=== PATIENT | female | born 1930 ===

== ENCOUNTER 2017-06-29 09:52 | Inpatient (IN) | payer MEDICARE, BC ==
[2017-06-29 09:52] VITALS: BMI 29.6
[2017-06-29] MEDS ORDERED: Sodium Chloride 0.9% 1,000 ML IV ONE (10:14)
[2017-06-29] MEDS ORDERED: Albuterol-Ipratrop 3 mg / 0.5 (3 ml) UD IH STA (10:33)
[2017-06-29] MEDS ORDERED: Sodium Chloride 0.9% 1,000 ML ONE (10:42)
[2017-06-29 10:49] LABS: BASO % 0.8 % (0.0-2.0); EOS # 0.1 K/uL (0.0-0.7); EOS % 1.8 % (0.0-4.0); HEMOGLOBIN 13.1 g/dL (11.0-16.0); LYMPH # 1.6 K/uL (1.0-4.3); LYMPH % 31.8 % (20.0-40.0); MEAN CELL VOLUME 83.6 fL (81.0-99.0); MEAN CORPUSCULAR HEMOGLOBIN 28.3 pg (27.0-31.0); MEAN CORPUSCULAR HGB CONC 33.9 g/dL (33.0-37.0); MEAN PLATELET VOLUME 9.5 fL (7.2-11.7); MONO # 0.6 K/uL (0.0-0.8); MONO % 12.9 % (0.0-10.0); NEUT # 2.6 K/uL (1.8-7.0); NEUT % 52.7 % (50.0-75.0); NRBC % 0.1 % (0.0-2.0); RBC 4.63 Mil/uL (3.80-5.20); RED CELL DISTRIBUTION WIDTH 18.3 % (11.5-14.5); WHITE BLOOD COUNT 4.9 K/uL (4.8-10.8)
--- NOTE | 2017-06-29 10:53 | C.PDOC ---
History Of Present Illness 86 year old female, with PMHx of CVA with left residual hemiparesis, asthma, HTN , presents to ED accompanied by family member for evaluation of cold symptoms including nasal congestion, body aches, generalized weakness, dry cough and low grade fever for the past week. Pt reports being seen by PMD 3 days ago, was given Rx of Cefdinir, Medrolpack, which pt has been taking without improvement. Pt states she woke up feeling weak, and fell in the bathroom. Otherwise, denies LOC, head injury, syncope, focal deficits, dizziness, fever, chills, neck pain, CP, dyspnea, palpitation, wheezing, abd. pain, N/V/D, denies new weakness changes B/L UEs and LEs. Time Seen by Provider: 06/29/17 10:14 Chief Complaint (Nursing): Weakness/Neurological Deficit History Per: Patient History/Exam Limitations: no limitations Onset/Duration Of Symptoms: Days Current Symptoms Are (Timing): Still Present Recent travel outside of the [place] States: No Additional History Per: Patient Past Medical History Reviewed: Historical Data, Nursing Documentation, Vital Signs Vital Signs: Last Vital Signs Temp 98.3 F 06/29/17 18:03 Pulse 86 06/29/17 18:03 Resp 18 06/29/17 18:03 BP 151/78 H 06/29/17 18:03 Pulse Ox 96 06/29/17 18:03 - Medical History PMH: Asthma, Bronchitis, HTN, Hypothyroidism Denies: Chronic Kidney Disease Surgical History: Cholecystectomy - [facility] Procedures D & C NEC (01/06/14) HYSTEROSCOPY (01/06/14) Family History: States: Unknown Family Hx - Social History Hx Alcohol Use: No Hx Substance Use: No - Immunization History Hx Tetanus Toxoid Vaccination: No Hx Influenza Vaccination: No Hx Pneumococcal Vaccination: No Review Of Systems Except As Marked, All Systems Reviewed And Found Negative. Constitutional: Positive for: Fever, Weakness, Other (body aches) ENT: Positive for: Nose Congestion Cardiovascular: Negative for: Chest Pain, Palpitations Respiratory: Positive for: Cough. Negative for: Shortness of Breath Gastrointestinal: Negative for: Nausea, Vomiting, Abdominal Pain, Diarrhea Musculoskeletal: Negative for: Neck Pain, Back Pain Neurological: Negative for: Weakness, Numbness, Headache, Dizziness Physical Exam - Physical Exam Appears: Non-toxic, No Acute Distress Skin: Normal Color, Warm, Dry Head: Normacephalic Eye(s): bilateral: PERRL Nose: No Flaring Oral Mucosa: Moist Throat: Normal, No Erythema, No Exudate Neck: Supple Cardiovascular: Rhythm Regular, No Murmur Respiratory: No Accessory Muscle Use, No Rales, No Rhonchi, Wheezing (diffuse bilateral ) Gastrointestinal/Abdominal: Soft, No Tenderness Extremity: Normal ROM, No Pedal Edema, No Deformity Neurological/Psych: Oriented x3, Normal Speech ED Course And Treatment - Laboratory Results Result Diagrams: 06/29/17 10:41 06/29/17 10:41 Lab Interpretation: No Acute Changes ECG: Interpreted By Me, Viewed By Me ECG Rhythm: Sinus Rhythm Interpretation Of ECG: SR@74/min, NAD, T wave inversion in III, no acute ST-T changes. O2 Sat by Pulse Oximetry: 100 (RA) Pulse Ox Interpretation: Normal - Radiology CXR: Interpreted by Me, Viewed By Me CXR Interpretation: Yes: No Acute Disease - Other Rad CXR X-Ray: Interpreted by Me, Viewed By Me, Read By Radiologist Interpretation: FINDINGS: LUNGS: Clear. PLEURA: Nonspecific elevation of the right hemidiaphragm. CARDIOVASCULAR: Normal. OSSEOUS STRUCTURES: Left glenohumeral prosthesis. Right humeral head anchor screws. VISUALIZED UPPER ABDOMEN: Normal. OTHER FINDINGS: Right chest wall surgical clips likely related to prior breast surgery. IMPRESSION: No active disease. Progress Note: Blood work, UA, influenza AB, CXR, EKG ordered and reviewed. Pt was given Solu-Medrol, and IV fluids. Pt was OBS in ED for 3 hours. Pt reports, "feels same". On re-eval, Lungs: diffuse wheezing B/L, BS equal B/L. Blood work review and appears without acute abnormalities. Case discussed with ED attending and admission recommend. results review and discussed with pt and family, agrees with plan. Case discused with DR. Coles and admission arranged with Dx: Asthma exacerbation, dyspnea r/o PNA. Disposition - Disposition Disposition: HOSPITALIZED Disposition Time: 12:37 Condition: STABLE - Clinical Impression Clinical Impression: Dyspnea, Asthma exacerbation, Pneumonia - PA / ADVERTISING DESIGNER / Resident Statement MD/DO has reviewed & agrees with the documentation as recorded. - Scribe Statement The provider has reviewed the documentation as recorded by the Armenkeila Faith All medical record entries made by the Heriberto were at my direction and personally dictated by me. I have reviewed the chart and agree that the record accurately reflects my personal performance of the history, physical exam, medical decision making, and the department course for this patient. I have also personally directed, reviewed, and agree with the discharge instructions and disposition.
[2017-06-29 11:03] LABS: ALB/GLOB RATIO 1.1 (1.0-2.1); ALBUMIN 3.7 g/dL (3.5-5.0); ALT/SGPT 25 U/L (9-52); AST/SGOT 30 U/L (14-36); BLOOD UREA NITROGEN 23 mg/dL (7-17); CALCIUM 8.4 mg/dl (8.6-10.4); GFR AFRICAN-AMERICAN > 60; GFR NON-AFRICAN AMERICAN 52; PROTHROMBIN TIME 11.3 SECONDS (9.7-12.2)
[2017-06-29 11:14] LABS: B-TYPE NATRIURETIC PEPTIDE 479 pg/mL (0-900)
--- NOTE | 2017-06-29 11:27 | RAD ---
PROCEDURE: CHEST RADIOGRAPH, 1 VIEW HISTORY: SOB COMPARISON: 04/06/2017 FINDINGS: LUNGS: Clear. PLEURA: Nonspecific elevation of the right hemidiaphragm. CARDIOVASCULAR: Normal. OSSEOUS STRUCTURES: Left glenohumeral prosthesis. Right humeral head anchor screws. VISUALIZED UPPER ABDOMEN: Normal. OTHER FINDINGS: Right chest wall surgical clips likely related to prior breast surgery. IMPRESSION: No active disease.
[2017-06-29] MEDS ORDERED: Piperacillin/Tazobact 3.375 gm 100 ML IVPB STA (11:34)
[2017-06-29 12:07] LABS: SQUAMOUS EPITHIAL 1 /hpf (0-5); URINE BACTERIA RARE (<OCC); URINE BILIRUBIN NEGATIVE (NEGATIVE); URINE BLOOD NEGATIVE (NEGATIVE); URINE CLARITY Clear (Clear); URINE COLOR Yellow (YELLOW); URINE GLUCOSE (UA) NORMAL (Normal); URINE HYALINE CAST 0-2 /lpf (0-2); URINE LEUKOCYTE ESTERASE TRACE Leu/uL (Negative); URINE NITRATE NEGATIVE (NEGATIVE); URINE PROTEIN 1+ mg/dL (NEGATIVE); URINE UROBILINOGEN NORMAL mg/dL (0.2-1.0)
[2017-06-29] MEDS ORDERED: Albuterol-Ipratrop 3 mg / 0.5 (3 ml) UD ONE (14:33)
[2017-06-29] MEDS ORDERED: Piperacill/Tazo 3.375gm in Dex 3.375 GM/50 ML BAG IVPB ONE (15:00)
[2017-06-29] MEDS ORDERED: Vancomycin 1 gm/NS 200 ml 1 GM/200 ML BAG IVPB ONE (17:00)
--- NOTE | 2017-06-29 20:00 | CP.PCM.CON ---
History of Present Illness - History of Present Illness History of Present Illness: Infectious Disease Consult; HPI; 86-year-old female with past medical history of CVA with left residual hemiparesis, bronchial asthma, HTN, hypothyroidism,metastatic CA of the breast with recurrence and presently on chemotherapy was admitted by the emergency room with nasal congestion, generalized body aches, dry cough and low-grade fevers for the past week. Patient states she saw her private M.D. 3 days ago and was given therapy with cefdinir, Medrol Adria which patient has been taking without improvement. Patient also reported reports feeling weak and fell in the bathroom this a.m. when she woke up. Patient denies any loss of consciousness or head injury, syncope, any focal deficits, dizziness. She denies any headache or neck pain. She complains of a dry cough but denies any hemoptysis or hematemesis. Patient also denies any abdominal pain, nausea or vomiting or diarrhea. CHEST X-RAY ON ADMISSION IS UNREMARKABLE. INFECTIOUS DISEASE CONSULTATION REQUESTED BY DR BURCIAGA PMD. PATIENT DENIES ANY RECENT TRAVEL OR ANY SICK CONTACTS. PMH: Asthma, Bronchitis, HTN, Hypothyroidism Denies: Chronic Kidney Disease Surgical History: Cholecystectomy - [facility] Procedures D & C NEC (01/06/14) HYSTEROSCOPY (01/06/14) Family History: States: Unknown Family Hx - Social History Hx Alcohol Use: No Hx Substance Use: No - Immunization History Hx Tetanus Toxoid Vaccination: No Hx Influenza Vaccination: No Hx Pneumococcal Vaccination: Nowith underwent Review of Systems - EENT Nose/Mouth/Throat: Nasal Congestion, Dry Mouth. absent: Hoarsness, Mouth Lesions, Sore Throat - Breasts Breasts: As Per HPI. absent: Mass, Nipple Discharge, Nipple Inversion - Cardiovascular Cardiovascular: Dyspnea. absent: Chest Pain - Respiratory Respiratory: Cough, Chest Congestion. absent: Hemoptysis, Change in Mucous Color - Gastrointestinal Gastrointestinal: absent: Abdominal Pain, Diarrhea, Hematemesis, Nausea, Vomiting - Genitourinary Genitourinary: absent: Dysuria, Freq UTI - Reproductive: Female Reproductive:Female: S/P Hysterectomy, Menopausal - Musculoskeletal Musculoskeletal: Limited Range of Motion (.), Myalgias, Tingling (LEFT HAND.) - Integumentary Integumentary: absent: Rash - Neurological Neurological: absent: Focal Weakness, Headaches, Syncope, Weakness - Hematologic/Lymphatic Hematologic: As Per HPI. absent: Lymphadenopathy Past Patient History - Infectious Disease Hx of Infectious Diseases: None - Past Medical History & Family History Past Medical History?: Yes - Past Social History Smoking Status: Never Smoked - CARDIAC Hx Hypertension: Yes - PULMONARY Hx Asthma: Yes Hx Bronchitis: Yes - NEUROLOGICAL HX Cerebrovascular Accident: Yes - HEENT Hx HEENT Problems: Yes Hx Cataracts: Yes - RENAL Hx Chronic Kidney Disease: No - ENDOCRINE/METABOLIC Hx Hypothyroidism: Yes - MUSCULOSKELETAL/RHEUMATOLOGICAL Hx Degenerative Joint Disease: Yes (bilat. shoulder arthroscopy) Hx Osteoarthritis: Yes (sciatica) - GASTROINTESTINAL Hx Gastrointestinal Disorders: No - GENITOURINARY/GYNECOLOGICAL Hx Genitourinary Disorders: Yes Hx Postmenopausal Bleeding: Yes - PSYCHIATRIC Hx Substance Use: No - SURGICAL HISTORY Hx Cholecystectomy: Yes - ANESTHESIA Hx Anesthesia: Yes Hx Anesthesia Reactions: No Hx Malignant Hyperthermia: No Meds Allergies/Adverse Reactions: Allergies Allergy/AdvReac Type Severity Reaction Status Date / Time No Known Allergies Allergy Verified 06/29/17 10:07 - Medications Medications: Current Medications Acetaminophen (Tylenol 325mg Tab) 650 mg PO Q4H PRN PRN Reason: pain fever Albuterol/Ipratropium (Duoneb 3 Mg/0.5 Mg (3 Ml) Ud) 3 ml INH RQ6 [facility] Gabapentin (Neurontin) 100 mg PO BID [facility] Home Med (Palbociclib [Ibrance]) 75 mg PO QWK [facility] Home Med (Simvastatin [Simvastatin]) 1 tab PO HS [facility] Home [facility] (Valsartan [Diovan]) 1 tab PO DAILY [facility] Vancomycin/Sodium Chloride (Vancomycin 1 Gm/Ns 200 Ml) 1 gm in 200 mls @ 166.7 mls/hr IVPB Q24H [facility] Stop: 07/05/17 16:31 Levothyroxine Sodium (Synthroid) 1,000 mcg PO DAILY [facility] Methylprednisolone (Solu-Medrol) 40 mg IVP Q12 [facility] Ondansetron HCl (Zofran Inj) 4 mg IVP Q6H PRN PRN Reason: Nausea/Vomiting Physical Exam - Constitutional Appears: No Acute Distress, Chronically Ill - Head Exam Head Exam: NORMAL INSPECTION - Eye Exam Eye Exam: EOMI, PERRL - ENT Exam ENT Exam: Mucous Membranes Dry, Normal Oropharynx - Neck Exam Neck exam: Positive for: Normal Inspection. Negative for: Thyromegaly - Respiratory Exam Respiratory Exam: Decreased Breath Sounds - Cardiovascular Exam Cardiovascular Exam: REGULAR RHYTHM, +S1, +S2 - GI/Abdominal Exam GI & Abdominal Exam: Normal Bowel Sounds, Soft. absent: Organomegaly - Extremities Exam Extremities exam: Positive for: pedal pulses present. Negative for: calf tenderness, pedal edema - Neurological Exam Neurological exam: Alert, CN II-XII Intact, Reflexes Normal (LEFT-SIDED WEAKNESS LEFT UPPER ARM MORE THAN LEFT LOWER EXTREMITY.) - Psychiatric Exam Psychiatric exam: Normal Mood - Skin Skin Exam: Normal Color, Warm Results - Vital Signs Recent Vital Signs: Last Vital Signs Temp 98.3 F 06/29/17 18:03 Pulse 86 06/29/17 18:03 Resp 18 06/29/17 18:03 BP 151/78 H 06/29/17 18:03 Pulse Ox 100 06/29/17 18:34 - Labs Result Diagrams: 06/29/17 10:41 06/29/17 10:41 Labs: Laboratory Results - last 24 hr 06/29/17 06/29/17 06/29/17 10:41 10:41 10:41 WBC 4.9 RBC 4.63 Hgb 13.1 Hct 38.7 MCV 83.6 MCH 28.3 MCHC 33.9 RDW 18.3 H Plt Count 255 MPV 9.5 Neut % (Auto) 52.7 Lymph % (Auto) 31.8 [place] % (Auto) 12.9 H Eos % (Auto) 1.8 Baso % (Auto) 0.8 Neut # 2.6 Lymph # 1.6 Wall[place] # 0.6 Eos # 0.1 Baso # 0.0 PT 11.3 INR 1.0 APTT 25 Sodium 136 Potassium 4.1 Chloride 105 Carbon Dioxide 26 Anion Gap 11 BUN 23 H Creatinine 1.0 Est GFR ( Amer) > 60 Est GFR (Non-Af Amer) 52 Random Glucose 97 Calcium 8.4 L Total Bilirubin 0.4 AST 30 ALT 25 Alkaline Phosphatase 73 Troponin I < 0.0120 NT-Pro-B Natriuret Pep 479 Total Protein 7.0 Albumin 3.7 Globulin 3.3 Albumin/Globulin Ratio 1.1 Urine Color Urine Clarity Urine pH Ur Specific [place] Urine Protein Urine Glucose (UA) Urine Ketones Urine Blood Urine Nitrate Urine Bilirubin Urine Urobilinogen Ur Leukocyte Esterase Urine WBC (Auto) Urine RBC (Auto) Ur Squamous Epith Cells Urine Bacteria Hyaline Casts Influenza Typ A,B (EIA) 06/29/17 06/29/17 10:55 11:35 WBC RBC Hgb Hct MCV MCH MCHC RDW Plt Count MPV Neut % (Auto) Lymph % (Auto) [place] % (Auto) Eos % (Auto) Baso % (Auto) Neut # Lymph # [place] # Eos # Baso # PT INR APTT Sodium Potassium Chloride Carbon Dioxide Anion Gap BUN Creatinine Est GFR ( Amer) Est GFR (Non-Af Amer) Random Glucose Calcium Total Bilirubin AST ALT Alkaline Phosphatase Troponin I NT-Pro-B Natriuret Pep Total Protein Albumin Globulin Albumin/Globulin Ratio Urine Color Yellow Urine Clarity Clear Urine pH 6.0 Ur Specific [place] 1.019 Urine Protein 1+ H Urine Glucose (UA) Normal Urine Ketones Negative Urine Blood Negative Urine Nitrate Negative Urine Bilirubin Negative Urine Urobilinogen Normal Ur Leukocyte Esterase Trace Urine WBC (Auto) 3 Urine RBC (Auto) 1 Ur Squamous Epith Cells 1 Urine Bacteria Rare Hyaline Casts 0-2 Influenza Typ A,B (EIA) Negative for flu a/b - Imaging and Cardiology Chest x-ray Status: Report reviewed by me (no active disease.) Assessment & Plan (1) Asthma exacerbation Status: Acute (2) Bronchitis Status: Acute (3) Dyspnea Status: Acute (4) Hypothyroidism Status: Acute (5) HTN (hypertension) Status: Acute (6) Metastatic breast cancer Status: Acute - Assessment and Plan (Free Text) Plan: PLAN. PANCULTURES ESR,CRP. MRSA -SCREENING ATYPICAL TITERS. Continue IV Zosyn 3.375 Q 8 HOURLY 06/29/17. CONTINUE iv VANCOMYCIN 1 G EVERY 24 HOURLY. 06/29/17 VANCO TROUGH PRIOR TO THE FOURTH DOSE AND KEEP BETWEEN 10 AND 20. FOLLOW-UP RENAL FUNCTIONS CLOSELY. SPUTUM GRAM STAIN AND CULTURE. IV STEROIDS PER PULMONARY. PULMONARY TOILET. WILL DISCUSS W PUMONARY. WE WILL FOLLOW ALONG WITH YOU AND MAKE RECOMMENDATIONS NEEDED. THANK YOU.
[2017-06-29] MEDS ORDERED: Piperacillin/Tazobact 3.375 GM in Sodium Chloride 100 ML IVPB SCH (20:45)
[2017-06-29] MEDS: Piperacill/Tazo 3.375gm in Dex 3.375 GM/50 ML BAG IVPB SCH (21:10)
[2017-06-29] MEDS: MethylPREDNISolone 40 mg Vial IVP SCH (21:53)
[2017-06-30] MEDS: Albuterol-Ipratrop 3 mg / 0.5 (3 ml) UD INH SCH ×4 (01:58→21:07)
--- NOTE | 2017-06-30 06:12 | HP ---
CHIEF COMPLAINT: Shortness of breath and coughing. HISTORY OF PRESENT ILLNESS: Ms. Jacqueline Foster is an 86-year-old female with past medical history of CVA with left residual hemiparesis, bronchial asthma, hypertension, hypothyroidism, metastatic CA of the breast with reoccurrence, and presently on chemotherapy, was admitted by the Emergency Room with nasal congestion, generalized body aches, dry cough, and low-grade fever for the past week. Patient states that she was in her private MD office 3 days ago and was given a therapy for , which patient has been taking without improvement. Patient also reported feeling weak and fell in the bathroom this a.m. When she woke up, the patient denies any loss of consciousness, head injuries, any facial droop or dizziness. The patient denies any headache or neck pain. Complaining of coughing, but denies any hemoptysis or hematemesis. No hematuria, no hematochezia. PAST MEDICAL HISTORY: Asthma, bronchitis, hypertension, hypothyroidism, breast cancer with metastasis - status post chemotherapy. SURGICAL HISTORY: Cholecystectomy, D and C, and hysterectomy. FAMILY HISTORY: Father and mother, noncontributory. HABITS: No smoking, no drugs, no ethanol. REVIEW OF SYSTEMS: The patient is seen and examined at the bedside, looking comfortable. Still coughing, shortness of breath. Nasal congestion with dry mouth, dyspnea. No chest pain, no hemoptysis, and no change in mucous color. No abdominal pain or diarrhea. No dysuria or hematuria. PHYSICAL EXAMINATION: VITAL SIGNS: Temperature 98.3, pulse 86, blood pressure 150/70, respiratory rate 18. HEENT: Head, normocephalic, atraumatic. Eyes, PERRLA. Extraocular muscles intact. Conjunctivae clear. Nose patent. Mucous membranes are moist. NECK: Supple. No carotid bruit, JVD, or thyromegaly. CHEST: Bilaterally symmetrical. HEART: S1 and S2 positive. LUNGS: Positive wheezing bilaterally. ABDOMEN: Soft. Bowel sounds positive. No organomegaly. EXTREMITIES: No edema. No cyanosis. NEUROLOGICAL: The patient is awake and alert. LABORATORY DATA: White blood cells 4.9, hemoglobin 13.1, hematocrit 38.7, platelets 255. Sodium 136, potassium 4.1, BUN 23, creatinine 1.0. Calcium 8.1, glucose 97. Liver function test within normal limits. ASSESSMENT AND PLAN: Ms. Jacqueline Foster is an 86-year-old lady, with increased BUN, hypocalcemia, proteinuria, flu - negative, came into [facility] with coughing, shortness of breath, seen by Infectious Diseases, Dr. Juanis Sanabria. Patient has history of asthma, bronchitis, hypertension, hypothyroidism, history of breast cancer with metastasis of the recurrent and presently chemotherapy, came with acute asthma exacerbation, bronchitis, and dyspnea. QUEZADA cultures are done, methicillin-resistant staphylococcus aureus screening done, atypical titers done. Continue Zosyn and vancomycin. Vancomycin troughs. Follow up renal function test closely. Sputum gram stain and cultures. Intravenous steroid. Started pulmonary toilet. Appreciated Dr Juanis Sanabria's input. Gastrointestinal and deep-vein thrombosis prophylaxes. Repeat labs. We will follow. Kalpana Coles MD [facility]
[2017-06-30] MEDS: Piperacill/Tazo 3.375gm in Dex 3.375 GM/50 ML BAG IVPB SCH ×3 (06:36→21:15)
[2017-06-30] MEDS: Enoxaparin 40 mg Syringe SC SCH (09:41)
[2017-06-30] MEDS: MethylPREDNISolone 40 mg Vial IVP SCH ×2 (09:41→21:15)
[2017-06-30] MEDS ORDERED: Levothyroxine 50 MCG TAB PO SCH (10:00)
[2017-06-30 11:47] LABS: HEMOGLOBIN 12.8 g/dL (11.0-16.0); MEAN CELL VOLUME 83.2 fL (81.0-99.0); MEAN CORPUSCULAR HGB CONC 33.6 g/dL (33.0-37.0); MEAN PLATELET VOLUME 9.5 fL (7.2-11.7); RBC 4.59 Mil/uL (3.80-5.20); RED CELL DISTRIBUTION WIDTH 18.4 % (11.5-14.5); WHITE BLOOD COUNT 8.7 K/uL (4.8-10.8)
[2017-06-30 12:06] LABS: BLOOD UREA NITROGEN 18 mg/dL (7-17); GFR AFRICAN-AMERICAN > 60; GFR NON-AFRICAN AMERICAN > 60; HDL CHOLESTEROL 61 mg/dL (30-70)
[2017-06-30 12:16] LABS: LDL CHOLESTEROL 91 mg/dL (0-129)
[2017-06-30] MEDS ORDERED: PALBOCICLIB 75 MG PO SCH (16:37)
[2017-06-30] MEDS ORDERED: Influenza Vaccine 60 mcg/0.5 mL SYR (4YR UP) IM ONE (16:48)
[2017-06-30] MEDS ORDERED: Pneumococcal 23-Valent Vaccine IM ONE (16:48)
[2017-06-30] MEDS: Vancomycin 1 gm/NS 200 ml 1 GM/200 ML BAG IVPB SCH (17:30)
[2017-06-30] MEDS: PALBOCICLIB 75 MG PO SCH (17:46)
--- NOTE | 2017-06-30 21:26 | CP.PCM.PN ---
Subjective - Date & Time of Evaluation Date of Evaluation: 06/30/17 Time of Evaluation: 21:26 - Subjective Subjective: AFEBRILE, fEELING SLIGHTLY IMPROVED. LESS CONGESTED LESS COUGH. C/O WEAKNESS AND TINGLING LEFT HAND WANTS TO HAVE A CT HEAD R/O CVA-RECURRENT LABS REVIEWED; BLOOD CULTURES/URINE CULTURES NEGATIVE TO DATE. Objective - Vital Signs/Intake and Output Vital Signs (last 24 hours): Temp Pulse Resp BP Pulse Ox 98.2 F 98 H 20 157/73 H 95 06/30/17 16:00 06/30/17 16:00 06/30/17 16:00 06/30/17 16:00 06/30/17 16:00 Intake and Output: 06/30/17 07/01/17 18:59 06:59 Intake Total 450 Balance 450 - Medications Medications: Current Medications Acetaminophen (Tylenol 325mg Tab) 650 mg PO Q4H PRN PRN Reason: pain fever Albuterol/Ipratropium (Duoneb 3 Mg/0.5 Mg (3 Ml) Ud) 3 ml INH RQ6 [facility] Last Admin: 06/30/17 21:07 Dose: 3 ml Calcium/Vitamin D (Oscal-D 250 Mg-125 Units Tab) 1 tab PO DAILY [facility] Enoxaparin Sodium (Lovenox) 40 mg SC DAILY [facility] Last Admin: 06/30/17 09:41 Dose: 40 mg Gabapentin (Neurontin) 100 mg PO BID [facility] Last Admin: 06/30/17 17:46 Dose: 100 mg Home Med (Patient's Own Medication) 1 tab PO DAILY [facility] Last Admin: 06/30/17 17:46 Dose: 1 tab Vancomycin/Sodium Chloride (Vancomycin 1 Gm/Ns 200 Ml) 1 gm in 200 mls @ 166.7 mls/hr IVPB Q24H [facility] Stop: 07/05/17 16:31 Last Admin: 06/30/17 17:30 Dose: 166.7 mls/hr Piperacillin Sod/Tazobactam Sod (Zosyn 3.375 Gm Iv Premix) 3.375 gm in 50 mls @ 100 mls/hr IVPB Q8 [facility] Last Admin: 06/30/17 21:15 Dose: 100 mls/hr Levothyroxine Sodium (Synthroid) 50 mcg PO 0630 [facility] Losartan Potassium (Cozaar) 25 mg PO DAILY [facility] Last Admin: 06/30/17 09:41 Dose: 25 mg Methylprednisolone (Solu-Medrol) 40 mg IVP Q12 [facility] Last Admin: 06/30/17 21:15 Dose: 40 mg Ondansetron HCl (Zofran Inj) 4 mg IVP Q6H PRN PRN Reason: Nausea/Vomiting Rosuvastatin Calcium (Crestor) 5 mg PO HS [facility] Last Admin: 06/30/17 21:15 Dose: 5 mg - Labs Labs: 06/30/17 11:40 06/30/17 11:40 PT 11.3 SECONDS (9.7-12.2) 06/29/17 10:41 INR 1.0 06/29/17 10:41 APTT 25 SECONDS (21-34) 06/29/17 10:41 - Constitutional Appears: No Acute Distress - Head Exam Head Exam: NORMAL INSPECTION - Eye Exam Eye Exam: EOMI, PERRL - ENT Exam ENT Exam: Normal Oropharynx - Neck Exam Neck Exam: Normal Inspection - Respiratory Exam Respiratory Exam: Wheezes (BILATERALLY) - Cardiovascular Exam Cardiovascular Exam: REGULAR RHYTHM, +S1, +S2 - GI/Abdominal Exam GI & Abdominal Exam: Soft, Normal Bowel Sounds. absent: Tenderness - Extremities Exam Extremities Exam: Normal Capillary Refill. absent: Calf Tenderness, Pedal Edema - Neurological Exam Neurological Exam: Awake, CN II-XII Intact, Oriented x3 - Psychiatric Exam Psychiatric exam: Normal Mood - Skin Skin Exam: Normal Color, Warm (LEFT SIDED WEAKNESS ? OLD) Assessment and Plan (1) Asthma exacerbation Status: Acute (2) Bronchitis Status: Acute (3) Dyspnea Status: Acute (4) Hypothyroidism Status: Acute (5) HTN (hypertension) Status: Acute (6) Metastatic breast cancer Status: Acute - Assessment and Plan (Free Text) Plan: CT OF THE HEAD WITHOUT CONTRAST RULE OUT NEW CVA Continue IV Zosyn 3.375 Q 8 HOURLY 06/29/17. CONTINUE iv VANCOMYCIN 1 G EVERY 24 HOURLY. 06/29/17 VANCO TROUGH PRIOR TO THE FOURTH DOSE AND KEEP BETWEEN 10 AND 20. FOLLOW-UP RENAL FUNCTIONS CLOSELY. SPUTUM GRAM STAIN AND CULTURE. IV STEROIDS PER PULMONARY. PULMONARY TOILET.
--- NOTE | 2017-06-30 22:26 | PN ---
DATE: SUBJECTIVE: The patient is an 86-year-old female. The patient is seen and examined at the bedside, looking comfortable. No nausea, vomiting, diarrhea. No hematuria or hematochezia. Still coughing and shortness of breath. No headache. No dizziness. PHYSICAL EXAMINATION: VITAL SIGNS: Temperature 98.2, pulse 68, blood pressure 157/73, respiratory rate 20. HEENT: Head normocephalic, atraumatic. Eyes PERRLA. Extraocular muscles are intact. Conjunctivae clear. Nose patent. Mucous membrane moist. NECK: Supple. No carotid bruit. No JVD or thyromegaly. CHEST: Bilaterally symmetrical. HEART: S1 and S2 positive. LUNGS: Clear to auscultation. ABDOMEN: Soft. Bowel sounds positive. No organomegaly. EXTREMITIES: No edema. No cyanosis. NEUROLOGICAL: The patient is awake and alert. Moving all 4 extremities. No focal deficits. LABORATORY DATA: White blood cells 8.7, hemoglobin 12.8, hematocrit 38.2, platelets 277. Sodium 136, potassium 3.9, BUN 18, creatinine 0.8, glucose 136. MEDICATIONS: Cozaar, Crestor, DuoNeb, Lovenox, Neurontin, Solu-Medrol, levothyroxine, Tylenol, vancomycin, Zofran, Zosyn. ASSESSMENT AND PLAN: Ms. Jacqueline Foster, 86-year-ol lady with hyperglycemia, hypocalcemia, proteinuria, influenza type A and B negative. Legionella antigen negative. Mycoplasma pneumoniae negative. The patient has history of asthma, bronchitis, hypertension, hypothyroidism, breast cancer with metastasis, status post chemotherapy. Came with exacerbation of asthma and bronchitis. The patient has hypocalcemia. We will replace the calcium. Dyspnea is improving. The pancultures are done. Results are pending. Sputum Gram stains and cultures pending. Getting intravenous antibiotics and steroids. Discussion done with the nurse practitionerMariano and the patient's nurse. Continue present treatment. Repeat labs. We will follow up. Kalpana Coles MD MTD[facility]errance
[2017-07-01] MEDS: Albuterol-Ipratrop 3 mg / 0.5 (3 ml) UD INH SCH ×4 (02:00→19:58)
[2017-07-01] MEDS: Levothyroxine 50 MCG TAB PO SCH (05:41)
[2017-07-01] MEDS: Piperacill/Tazo 3.375gm in Dex 3.375 GM/50 ML BAG IVPB SCH (05:41)
--- NOTE | 2017-07-01 08:13 | CP.PCM.CON ---
History of Present Illness - History of Present Illness History of Present Illness: admitted with cough nasal congestion yellowish sputum, also has left sided weakness, s/p fall at home. recently treated with medrol pack and cefdinir without success cxr neg. Review of Systems - Review of Systems All systems: reviewed and no additional remarkable complaints except - Constitutional Constitutional: Weakness - EENT Nose/Mouth/Throat: Nasal Congestion, Nasal Discharge - Respiratory Respiratory: Cough - Musculoskeletal Musculoskeletal: Muscle Weakness - Neurological Neurological: Focal Weakness Past Patient History - Infectious Disease Hx of Infectious Diseases: None - Past Medical History & Family History Past Medical History?: Yes - Past Social History Smoking Status: Never Smoked - CARDIAC Hx Hypertension: Yes - PULMONARY Hx Asthma: Yes Hx Bronchitis: Yes - NEUROLOGICAL HX Cerebrovascular Accident: Yes - HEENT Hx HEENT Problems: Yes Hx Cataracts: Yes - RENAL Hx Chronic Kidney Disease: No - ENDOCRINE/METABOLIC Hx Hypothyroidism: Yes - MUSCULOSKELETAL/RHEUMATOLOGICAL Hx Arthritis: Yes - GASTROINTESTINAL Hx Gastrointestinal Disorders: No - GENITOURINARY/GYNECOLOGICAL Hx Genitourinary Disorders: Yes Hx Postmenopausal Bleeding: Yes - PSYCHIATRIC Hx Substance Use: No - SURGICAL HISTORY Hx Cholecystectomy: Yes - ANESTHESIA Hx Anesthesia: Yes Hx Anesthesia Reactions: No Hx Malignant Hyperthermia: No Meds Allergies/Adverse Reactions: Allergies Allergy/AdvReac Type Severity Reaction Status Date / Time No Known Allergies Allergy Verified 06/29/17 10:07 - Medications Medications: Current Medications Acetaminophen (Tylenol 325mg Tab) 650 mg PO Q4H PRN PRN Reason: pain fever Albuterol/Ipratropium (Duoneb 3 Mg/0.5 Mg (3 Ml) Ud) 3 ml INH RQ6 [facility] Last Admin: 07/01/17 02:00 Dose: Not Given Calcium/Vitamin D (Oscal-D 250 Mg-125 Units Tab) 1 tab PO DAILY [facility] Enoxaparin Sodium (Lovenox) 40 mg SC DAILY [facility] Last Admin: 06/30/17 09:41 Dose: 40 mg Gabapentin (Neurontin) 100 mg PO BID [facility] Last Admin: 06/30/17 17:46 Dose: 100 mg Home Med (Patient's Own Medication) 1 tab PO DAILY [facility] Last Admin: 06/30/17 17:46 Dose: 1 tab Vancomycin/Sodium Chloride (Vancomycin 1 Gm/Ns 200 Ml) 1 gm in 200 mls @ 166.7 mls/hr IVPB Q24H [facility] Stop: 07/05/17 16:31 Last Admin: 06/30/17 17:30 Dose: 166.7 mls/hr Piperacillin Sod/Tazobactam Sod (Zosyn 3.375 Gm Iv Premix) 3.375 gm in 50 mls @ 100 mls/hr IVPB Q8 [facility] Last Admin: 07/01/17 05:41 Dose: 100 mls/hr Levothyroxine Sodium (Synthroid) 50 mcg PO 0630 [facility] Last Admin: 07/01/17 05:41 Dose: 50 mcg Losartan Potassium (Cozaar) 25 mg PO DAILY [facility] Last Admin: 06/30/17 09:41 Dose: 25 mg Methylprednisolone (Solu-Medrol) 40 mg IVP Q12 [facility] Last Admin: 06/30/17 21:15 Dose: 40 mg Ondansetron HCl (Zofran Inj) 4 mg IVP Q6H PRN PRN Reason: Nausea/Vomiting Rosuvastatin Calcium (Crestor) 5 mg PO HS [facility] Last Admin: 06/30/17 21:15 Dose: 5 mg Physical Exam - Constitutional Appears: No Acute Distress - Head Exam Head Exam: ATRAUMATIC, NORMOCEPHALIC - Eye Exam Eye Exam: Normal appearance - ENT Exam ENT Exam: Mucous Membranes Moist - Neck Exam Neck exam: Positive for: Normal Inspection - Respiratory Exam Respiratory Exam: Decreased Breath Sounds, Rhonchi - Cardiovascular Exam Cardiovascular Exam: +S1, +S2 - GI/Abdominal Exam GI & Abdominal Exam: Normal Bowel Sounds - Rectal Exam Rectal Exam: Deferred - Neurological Exam Neurological exam: Alert, Oriented x3 - Psychiatric Exam Psychiatric exam: Normal Affect, Normal Mood - Skin Skin Exam: Intact Results - Vital Signs Recent Vital Signs: Last Vital Signs Temp 98.1 F 07/01/17 00:00 Pulse 89 07/01/17 00:00 Resp 20 07/01/17 00:00 BP 148/77 07/01/17 00:00 Pulse Ox 98 07/01/17 00:00 - Labs Result Diagrams: 06/30/17 11:40 06/30/17 11:40 Labs: Laboratory Results - last 24 hr 06/29/17 06/30/17 06/30/17 20:38 11:40 11:40 WBC 8.7 D RBC 4.59 Hgb 12.8 Hct 38.2 MCV 83.2 MCH 28.0 MCHC 33.6 RDW 18.4 H Plt Count 277 MPV 9.5 ESR 38 H Sodium Potassium Chloride Carbon Dioxide Anion Gap BUN Creatinine Est GFR ( Amer) Est GFR (Non-Af Amer) Random Glucose Calcium C-React Prot High Sens Triglycerides Cholesterol LDL Cholesterol Direct HDL Cholesterol TSH 3rd Generation Ur L.pneumophila Ag Negative Mycoplasma pneumon IgM Negative 06/30/17 06/30/17 11:40 11:40 WBC RBC Hgb Hct MCV MCH MCHC RDW Plt Count MPV ESR Sodium 136 Potassium 3.9 Chloride 106 Carbon Dioxide 21 L Anion Gap 13 BUN 18 H Creatinine 0.8 Est GFR ( Amer) > 60 Est GFR (Non-Af Amer) > 60 Random Glucose 136 H Calcium 8.0 L C-React Prot High Sens 2.66 Triglycerides 59 Cholesterol 185 LDL Cholesterol Direct 91 HDL Cholesterol 61 TSH 3rd Generation 0.36 L Ur L.pneumophila Ag Mycoplasma pneumon IgM Assessment & Plan (1) Asthma exacerbation Status: Acute Comment: add malou collins (2) Sinusitis, acute Status: Acute Comment: ct sinuses (3) HTN (hypertension) Status: Chronic
--- NOTE | 2017-07-01 09:15 | CT ---
PROCEDURE: CT HEAD WITHOUT CONTRAST. HISTORY: r/o ICH/VS NEW CVA COMPARISON: None available. TECHNIQUE: Axial computed tomography images were obtained through the head/brain without intravenous contrast. Radiation dose: Total exam DLP = 801 mGy-cm. This CT exam was performed using one or more of the following dose reduction techniques: Automated exposure control, adjustment of the mA and/or kV according to patient size, and/or use of iterative reconstruction technique. FINDINGS: HEMORRHAGE: No intracranial hemorrhage. BRAIN: No mass effect or edema. Scattered focal lucencies in the subcortical and periventricular white matter suggestive for chronic microvascular ischemic change. VENTRICLES: Unremarkable. No hydrocephalus. CALVARIUM: Unremarkable. PARANASAL SINUSES: Mucosal thickening with fluid level seen in the bilateral maxillary sinuses and sphenoid sinus. Mucosal thickening of the ethmoid air cells. MASTOID AIR CELLS: Unremarkable as visualized. No inflammatory changes. OTHER FINDINGS: None. IMPRESSION: Chronic microvascular ischemic changes. If focal neurologic deficit persists, consider MRI. Sinus mucosal disease.
--- NOTE | 2017-07-01 09:19 | CT ---
CT sinuses History: Recurrent sinusitis. Comparison: None available. Technique: Multiple contiguous axial images were performed through the paranasal sinuses without the use of intravenous contrast. Subsequently, sagittal and coronal reformatted images were obtained. This CT exam was performed using one or more of the following dose reduction techniques: Automated exposure control, adjustment of the mA and/or kV according to patient size, and/or use of iterative reconstruction technique. Findings: Moderate mucosal thickening in the bilateral maxillary sinuses with associated fluid levels. Fluid levels noted within the sphenoid sinus. Moderate mucosal thickening of the ethmoid air cells. Frontal sinus is preserved. Bilateral mastoid air cells are preserved. Ocular calcifications noted. Nasal septal deviation. Moderate mucosal thickening and hypertrophy of the middle and inferior nasal turbinates; right greater than left. Mild mucosal opacification of the right ostiomeatal unit. Left ostiomeatal unit appears preserved. Degenerative changes at the atlantodental interval with bony sclerosis and hypertrophy. Impression: Sinus mucosal disease as above.
[2017-07-01] MEDS ORDERED: Patient's Own Medication - Tablet/Capusle PO SCH (10:00)
[2017-07-01] MEDS: PALBOCICLIB 75 MG PO SCH (10:33)
[2017-07-01] MEDS: MethylPREDNISolone 40 mg Vial IVP SCH ×2 (10:34→21:40)
[2017-07-01] MEDS: Calcium-Vit D 250 mg-125 Units Tab UD PO SCH (10:34)
[2017-07-01] MEDS: Enoxaparin 40 mg Syringe SC SCH (10:34)
[2017-07-01] MEDS: Fluticasone Nasal 50 mcg/Spray NAS SCH ×2 (10:47→23:20)
[2017-07-01] MEDS: Piperacillin/Tazobact 3.375 GM in Sodium Chloride 0.9% 100 ML IVPB SCH ×2 (14:41→21:48)
[2017-07-01] MEDS: Vancomycin 1 gm/NS 200 ml 1 GM/200 ML BAG IVPB SCH (17:38)
[2017-07-01] MEDS: Fluticasone-Salmeterol 250-50mcg Diskus INH SCH (19:58)
--- NOTE | 2017-07-01 21:01 | CP.PCM.HP ---
History of Present Illness - History of Present Illness History of Present Illness: 86-year-old female with past medical history of CVA with left residual hemiparesis, bronchial asthma, HTN, hypothyroidism,metastatic CA of the breast with recurrence and presently on chemotherapy was admitted by the emergency room with nasal congestion, generalized body aches, dry cough and low-grade fevers for the past week. Patient states she saw her private M.D. 3 days ago and was given therapy with cefdinir, Medrol Adria which patient has been taking without improvement. Patient also reported reports feeling weak and fell in the bathroom this a.m. when she woke up. Patient denies any loss of consciousness or head injury, syncope, any focal deficits, dizziness. She denies any headache or neck pain. She complains of a dry cough but denies any hemoptysis or hematemesis. Patient also denies any abdominal pain, nausea or vomiting or diarrhea. CHEST X-RAY ON ADMISSION IS UNREMARKABLE. Present on Admission - Present on Admission Any Indicators Present on Admission: Yes Review of Systems - Review of Systems Systems not reviewed;Unavailable: Respiratory Distress - Constitutional Constitutional: Fatigue, Lethargy, Malaise - EENT Eyes: absent: As Per HPI, Blind Spots, Blurred Vision, Change in Vision, Decreased Night Vision, Diplopia, Discharge, Dry Eye, Exophthalmos, Floaters, Irritation, Itchy Eyes, Loss of Peripheral Vision, Pain, Photophobia, Requires Corrective Lenses, Sees Flashes, Spots in Vision, Tunnel Vision, Other Visual Disturbances, Loss of Vision, Other Nose/Mouth/Throat: Nasal Congestion, Sinus Pain, Sinus Pressure - Respiratory Respiratory: Cough, Dyspnea, Dyspnea on Exertion, Snoring - Gastrointestinal Gastrointestinal: absent: As Per HPI, Abdominal Pain, Belching, Bloating, Change in Bowel Habits, Change in Stool Character, Coffee Ground Emesis, Constipation, Cramping, Diarrhea, Dyspepsia, Dysphagia, Early Satiety, Excessive Flatus, Fecal Incontinence, Heartburn, Hematemesis, Hematochezia, Loose Stools, Melena, Nausea, Odynophagia, Temesmus, Vomiting, Other - Genitourinary Genitourinary: absent: As Per HPI, Change in Urinary Stream, Difficulty Urinating, Dysuria, Flank Pain, Hematuria, Pyuria, Nocturia, Urinary Incontinence, Urinary Frequency, Urinary Hesitance, Urinary Urgency, Voiding Freq/Small Amts, Freq UTI, Hx Renal/Bladder Calculi, Hx /Renal Surgery, Bladder Distension, Other Past Patient History - Infectious Disease Hx of Infectious Diseases: None - Past Medical History & Family History Past Medical History?: Yes - Past Social History Smoking Status: Never Smoked - CARDIAC Hx Hypertension: Yes - PULMONARY Hx Asthma: Yes Hx Bronchitis: Yes - NEUROLOGICAL HX Cerebrovascular Accident: Yes - HEENT Hx HEENT Problems: Yes Hx Cataracts: Yes - RENAL Hx Chronic Kidney Disease: No - ENDOCRINE/METABOLIC Hx Hypothyroidism: Yes - MUSCULOSKELETAL/RHEUMATOLOGICAL Hx Arthritis: Yes - GASTROINTESTINAL Hx Gastrointestinal Disorders: No - GENITOURINARY/GYNECOLOGICAL Hx Genitourinary Disorders: Yes Hx Postmenopausal Bleeding: Yes - PSYCHIATRIC Hx Substance Use: No - SURGICAL HISTORY Hx Cholecystectomy: Yes - ANESTHESIA Hx Anesthesia: Yes Hx Anesthesia Reactions: No Hx Malignant Hyperthermia: No Meds Allergies/Adverse Reactions: Allergies Allergy/AdvReac Type Severity Reaction Status Date / Time No Known Allergies Allergy Verified 06/29/17 10:07 Physical Exam - Constitutional Appears: No Acute Distress - Head Exam Head Exam: ATRAUMATIC, NORMAL INSPECTION, NORMOCEPHALIC - Eye Exam Eye Exam: EOMI, Normal appearance, PERRL Pupil Exam: NORMAL ACCOMODATION, PERRL - Neck Exam Neck exam: Positive for: Normal Inspection - Respiratory Exam Respiratory Exam: Decreased Breath Sounds, Rhonchi, Wheezes - Cardiovascular Exam Cardiovascular Exam: REGULAR RHYTHM - GI/Abdominal Exam GI & Abdominal Exam: Normal Bowel Sounds, Soft. absent: Tenderness - Neurological Exam Neurological exam: Alert, CN II-XII Intact, Normal Gait, Oriented x3, Reflexes Normal Results - Vital Signs Recent Vital Signs: Last Vital Signs Temp 97.8 F 07/01/17 16:00 Pulse 92 H 07/01/17 16:00 Resp 20 07/01/17 16:00 BP 157/79 H 07/01/17 16:00 Pulse Ox 95 07/01/17 16:00 - Labs Result Diagrams: 07/02/17 07:27 07/02/17 07:27 Labs: Laboratory Results - last 24 hr 06/30/17 11:40 Hemoglobin A1c 6.6 H Assessment & Plan (1) Asthma exacerbation Status: Acute (2) Bronchitis Status: Acute (3) Sinusitis Status: Acute (4) HTN (hypertension) Status: Chronic
--- NOTE | 2017-07-01 21:02 | CP.PCM.PN ---
Subjective - Date & Time of Evaluation Date of Evaluation: 07/01/17 Time of Evaluation: 18:50 - Subjective Subjective: Pt seen and evaluated today, still c/o cough nasal congestion yellowish sputum, also has left sided weakness, s/p fall at home.also seen by pulmonary on prednisolone and antibiotics Objective - Vital Signs/Intake and Output Vital Signs (last 24 hours): Temp Pulse Resp BP Pulse Ox 97.8 F 92 H 20 157/79 H 95 07/01/17 16:00 07/01/17 16:00 07/01/17 16:00 07/01/17 16:00 07/01/17 16:00 Intake and Output: 07/01/17 07/02/17 18:59 06:59 Intake Total 890 Balance 890 - Medications Medications: Current Medications Acetaminophen (Tylenol 325mg Tab) 650 mg PO Q4H PRN PRN Reason: pain fever Albuterol/Ipratropium (Duoneb 3 Mg/0.5 Mg (3 Ml) Ud) 3 ml INH RQ6 [facility] Last Admin: 07/01/17 19:58 Dose: 3 ml Calcium/Vitamin D (Oscal-D 250 Mg-125 Units Tab) 1 tab PO DAILY [facility] Last Admin: 07/01/17 10:34 Dose: 1 tab Enoxaparin Sodium (Lovenox) 40 mg SC DAILY [facility] Last Admin: 07/01/17 10:34 Dose: 40 mg Fluticasone Propionate (Flonase) 1 spr BRUCE Q12 [facility] Last Admin: 07/01/17 10:47 Dose: Not Given Gabapentin (Neurontin) 100 mg PO BID [facility] Last Admin: 07/01/17 17:38 Dose: 100 mg Home Med (Patient's Own Medication) 1 tab PO DAILY [facility] Last Admin: 07/01/17 10:33 Dose: 1 tab Vancomycin/Sodium Chloride (Vancomycin 1 Gm/Ns 200 Ml) 1 gm in 200 mls @ 166.7 mls/hr IVPB Q24H [facility] Stop: 07/05/17 16:31 Last Admin: 07/01/17 17:38 Dose: 166.7 mls/hr Piperacillin Sod/Tazobactam (Sod 3.375 gm/ Sodium Chloride) 100 mls @ 100 mls/ hr IVPB Q8 [facility] Last Admin: 07/01/17 14:41 Dose: 100 mls/hr Levothyroxine Sodium (Synthroid) 50 mcg PO 0630 [facility] Last Admin: 07/01/17 05:41 Dose: 50 mcg Losartan Potassium (Cozaar) 25 mg PO DAILY [facility] Last Admin: 07/01/17 10:33 Dose: 25 mg Methylprednisolone (Solu-Medrol) 40 mg IVP Q12 [facility] Last Admin: 07/01/17 10:34 Dose: 40 mg Ondansetron HCl (Zofran Inj) 4 mg IVP Q6H PRN PRN Reason: Nausea/Vomiting Rosuvastatin Calcium (Crestor) 5 mg PO HS [facility] Last Admin: 06/30/17 21:15 Dose: 5 mg Fluticasone/Salmeterol (Advair Diskus 250/50) 1 puff INH RQ12 [facility] Last Admin: 07/01/17 19:58 Dose: 1 puff - Labs Labs: 06/30/17 11:40 06/30/17 11:40 PT 11.3 SECONDS (9.7-12.2) 06/29/17 10:41 INR 1.0 06/29/17 10:41 APTT 25 SECONDS (21-34) 06/29/17 10:41 - Constitutional Appears: No Acute Distress - Head Exam Head Exam: ATRAUMATIC, NORMAL INSPECTION, NORMOCEPHALIC - Eye Exam Eye Exam: EOMI, Normal appearance, PERRL Pupil Exam: NORMAL ACCOMODATION, PERRL - Respiratory Exam Respiratory Exam: Decreased Breath Sounds, Rhonchi, Wheezes - Cardiovascular Exam Cardiovascular Exam: REGULAR RHYTHM, +S1, +S2. absent: Murmur
--- NOTE | 2017-07-01 23:04 | CP.PCM.PN ---
Subjective - Date & Time of Evaluation Date of Evaluation: 07/01/17 Time of Evaluation: 23:04 - Subjective Subjective: AFEBRILE, NO NEW COMPLAINTS. 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 LESS CONGESTED LESS COUGH. SEEN BY PULMONARY. CT HEAD NOTED. CT SINUSES ORDERED. Objective - Vital Signs/Intake and Output Vital Signs (last 24 hours): Temp Pulse Resp BP Pulse Ox 97.8 F 92 H 20 157/79 H 95 07/01/17 16:00 07/01/17 16:00 07/01/17 16:00 07/01/17 16:00 07/01/17 16:00 Intake and Output: 07/01/17 07/02/17 18:59 06:59 Intake Total 890 500 Output Total 400 Balance 890 100 - Medications Medications: Current Medications Acetaminophen (Tylenol 325mg Tab) 650 mg PO Q4H PRN PRN Reason: pain fever Albuterol/Ipratropium (Duoneb 3 Mg/0.5 Mg (3 Ml) Ud) 3 ml INH RQ6 [facility] Last Admin: 07/01/17 19:58 Dose: 3 ml Calcium/Vitamin D (Oscal-D 250 Mg-125 Units Tab) 1 tab PO DAILY [facility] Last Admin: 07/01/17 10:34 Dose: 1 tab Enoxaparin Sodium (Lovenox) 40 mg SC DAILY [facility] Last Admin: 07/01/17 10:34 Dose: 40 mg Fluticasone Propionate (Flonase) 1 spr BRUCE Q12 [facility] Last Admin: 07/01/17 10:47 Dose: Not Given Gabapentin (Neurontin) 100 mg PO BID [facility] Last Admin: 07/01/17 17:38 Dose: 100 mg Home Med (Patient's Own Medication) 1 tab PO DAILY [facility] Last Admin: 07/01/17 10:33 Dose: 1 tab Vancomycin/Sodium Chloride (Vancomycin 1 Gm/Ns 200 Ml) 1 gm in 200 mls @ 166.7 mls/hr IVPB Q24H [facility] Stop: 07/05/17 16:31 Last Admin: 07/01/17 17:38 Dose: 166.7 mls/hr Piperacillin Sod/Tazobactam (Sod 3.375 gm/ Sodium Chloride) 100 mls @ 100 mls/ hr IVPB Q8 [facility] Last Admin: 07/01/17 21:48 Dose: 100 mls/hr Levothyroxine Sodium (Synthroid) 50 mcg PO 0630 [facility] Last Admin: 07/01/17 05:41 Dose: 50 mcg Losartan Potassium (Cozaar) 25 mg PO DAILY [facility] Last Admin: 07/01/17 10:33 Dose: 25 mg Methylprednisolone (Solu-Medrol) 40 mg IVP Q12 [facility] Last Admin: 07/01/17 21:40 Dose: 40 mg Ondansetron HCl (Zofran Inj) 4 mg IVP Q6H PRN PRN Reason: Nausea/Vomiting Rosuvastatin Calcium (Crestor) 5 mg PO HS [facility] Last Admin: 07/01/17 21:39 Dose: 5 mg Fluticasone/Salmeterol (Advair Diskus 250/50) 1 puff INH RQ12 [facility] Last Admin: 07/01/17 19:58 Dose: 1 puff - Labs Labs: 06/30/17 11:40 06/30/17 11:40 PT 11.3 SECONDS (9.7-12.2) 06/29/17 10:41 INR 1.0 06/29/17 10:41 APTT 25 SECONDS (21-34) 06/29/17 10:41 - Constitutional Appears: No Acute Distress - Head Exam Head Exam: NORMAL INSPECTION - Eye Exam Eye Exam: EOMI, PERRL - ENT Exam ENT Exam: Mucous Membranes Moist, Normal Oropharynx - Neck Exam Neck Exam: Normal Inspection - Respiratory Exam Respiratory Exam: Decreased Breath Sounds - Cardiovascular Exam Cardiovascular Exam: REGULAR RHYTHM, +S1, +S2 - GI/Abdominal Exam GI & Abdominal Exam: Soft, Normal Bowel Sounds. absent: Organomegaly - Extremities Exam Extremities Exam: absent: Calf Tenderness, Pedal Edema - Neurological Exam Neurological Exam: Awake, Oriented x3 (LEFT UPPER EXTREMITY WEAKNESS.) - Psychiatric Exam Psychiatric exam: Normal Mood - Skin Skin Exam: Normal Color, Warm Assessment and Plan (1) Asthma exacerbation Status: Acute (2) Bronchitis Status: Acute (3) Dyspnea Status: Acute (4) Hypothyroidism Status: Acute (5) HTN (hypertension) Status: Chronic (6) Metastatic breast cancer Status: Acute (7) CVA (cerebral vascular accident) Assessment & Plan: ? new versus old. CONSIDER NEUROLOGY EVALUATION. Status: Acute - Assessment and Plan (Free Text) Plan: Continue IV Zosyn 3.375 Q 8 HOURLY 06/29/17. CONTINUE iv VANCOMYCIN 1 G EVERY 24 HOURLY. 06/29/17 VANCO TROUGH PRIOR TO THE FOURTH DOSE AND KEEP BETWEEN 10 AND 20. FOLLOW-UP RENAL FUNCTIONS CLOSELY. SPUTUM GRAM STAIN AND CULTURE. IV STEROIDS PER PULMONARY. F/U CT SINUSES. ? NEUROLOGY EVALUATION PER PMD.
--- NOTE | 2017-07-02 00:54 | PN ---
DATE: SUBJECTIVE: Patient is an 86-year-old female. Patient is seen and examined at bedside, looking comfortable, still coughing, but better, has nasal congestion, yellowish sputum, left-sided weakness, SP fall, but no fever, no chills. No headache, no dizziness. Patient got treatment with Medrol Dosepak and antibiotics as outpatient, but failed. That is why we admitted her for Solu-Medrol and IV antibiotics. Pulmonary is on the case. No hematuria or hematochezia. PHYSICAL EXAMINATION VITAL SIGNS: Temperature 97.8, pulse 92, blood pressure 157/79, respiratory rate 20. HEENT: Head: Normocephalic, atraumatic. Eyes: PERRLA. Extraocular movements are intact. Conjunctivae clear. Nose patent. Mucous membranes are moist. NECK: Supple. No carotid bruits. No thyromegaly. CHEST: Bilaterally symmetrical. HEART: S1, S2 positive. LUNGS: Wheezing bilaterally. ABDOMEN: Soft. Bowel sounds are positive. No organomegaly. EXTREMITIES: No edema. No cyanosis. NEUROLOGIC: The patient is awake and alert. Follows simple commands. MEDICATIONS: Advair, Cozaar, Crestor, DuoNeb, Flonase, Lovenox, Neurontin, calcium with vitamin D, Zosyn, levothyroxine, vancomycin, Zofran. LABORATORY DATA: White blood cell is 8.7, hemoglobin 12.8, hematocrit 38.2, platelets 277. Sodium 136, potassium 3.9, BUN 18, creatinine 0.8, and glucose 138. Hemoglobin A1c 6.6. ASSESSMENT AND PLAN: Ms. Jacqueline Foster is an 86-year-old lady with hyperglycemia, hemoglobin A1c 6.6, diabetes mellitus, hypocalcemia, hypothyroidism, proteinuria. Influenza type A and B is negative. Planned for sinuses CT today. Has sinus mucosal disease, moderate mucosal thickening and hypertrophy of the middle and inferior nasal turbinate, right greater than the left; mild mucosal opacification of right ostiomeatal unit; degenerative changes at atlantodental interval with bony sclerosis and hypertrophy. 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 CAT scan of the head done showed chronic microvascular ischemic changes. If focal neurological deficit persists, consider MRI. Seen by ID, Dr. Juanis Sanabria. Bronchitis, dyspnea, metastatic breast cancer. Sputum gram-stain and culture were sent. 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 Continue vancomycin. Continue Zosyn. Patient was admitted by me on 06/29/2017, As per patient, she wants another primary care physician because of language problem/she do not want to follow up in [place]. My office is in [place]. Then I spoke to Dr. Matteo Leal on 07/01/2017, at 7:50 and I will transfer service to Dr. Matteo Leal. Dr. Matteo Leal accepted the patient and he will take care of the patient for further treatment and followup. Kalpana Coles MD MTDD
[2017-07-02] MEDS: Albuterol-Ipratrop 3 mg / 0.5 (3 ml) UD INH SCH ×4 (01:53→19:30)
[2017-07-02] MEDS: Piperacillin/Tazobact 3.375 GM in Sodium Chloride 0.9% 100 ML IVPB SCH ×2 (06:01→13:49)
[2017-07-02] MEDS: Levothyroxine 50 MCG TAB PO SCH (06:40)
[2017-07-02] MEDS: Fluticasone-Salmeterol 250-50mcg Diskus INH SCH ×2 (07:30→19:30)
[2017-07-02 07:39] LABS: HEMOGLOBIN 12.2 g/dL (11.0-16.0); LYMPH # 1.3 K/uL (1.0-4.3); LYMPH % 15.2 % (20.0-40.0); MEAN CELL VOLUME 83.2 fL (81.0-99.0); MEAN CORPUSCULAR HEMOGLOBIN 27.7 pg (27.0-31.0); MEAN CORPUSCULAR HGB CONC 33.3 g/dL (33.0-37.0); MEAN PLATELET VOLUME 9.2 fL (7.2-11.7); MONO # 0.5 K/uL (0.0-0.8); MONO % 5.9 % (0.0-10.0); NEUT # 6.7 K/uL (1.8-7.0); NEUT % 78.9 % (50.0-75.0); RBC 4.4 Mil/uL (3.80-5.20); RED CELL DISTRIBUTION WIDTH 18.2 % (11.5-14.5); WHITE BLOOD COUNT 8.5 K/uL (4.8-10.8)
[2017-07-02 08:13] VITALS: RESP 20; O2SAT 95
[2017-07-02 08:37] LABS: ALT/SGPT 26 U/L (9-52)
[2017-07-02 08:39] LABS: ALB/GLOB RATIO 1.1 (1.0-2.1); ALBUMIN 3.3 g/dL (3.5-5.0); AST/SGOT 24 U/L (14-36); BLOOD UREA NITROGEN 19 mg/dL (7-17); CALCIUM 7.6 mg/dl (8.6-10.4); GFR AFRICAN-AMERICAN > 60; GFR NON-AFRICAN AMERICAN > 60
[2017-07-02] MEDS: Fluticasone Nasal 50 mcg/Spray NAS SCH (10:06)
[2017-07-02] MEDS: Calcium-Vit D 250 mg-125 Units Tab UD PO SCH (10:06)
[2017-07-02] MEDS: PALBOCICLIB 75 MG PO SCH (10:06)
[2017-07-02] MEDS: Enoxaparin 40 mg Syringe SC SCH (10:07)
[2017-07-02] MEDS: MethylPREDNISolone 40 mg Vial IVP SCH (10:07)
[2017-07-02 17:03] VITALS: BP 137/78; PULSE 84; TEMP 98
[2017-07-02] MEDS: Vancomycin 1 gm/NS 200 ml 1 GM/200 ML BAG IVPB SCH (17:43)
--- NOTE | 2017-07-02 17:58 | CP.PCM.PN ---
Subjective - Date & Time of Evaluation Date of Evaluation: 07/02/17 Time of Evaluation: 17:58 - Subjective Subjective: AFEBRILE, fEELING BETTER. lESS CONGESTED lESS COUGH. lABS REVIEWED; CT SINUSES; NOTED SINUS MUCOSAL DISEASE. ON IV ABX . Objective - Vital Signs/Intake and Output Vital Signs (last 24 hours): Temp Pulse Resp BP Pulse Ox 98 F 84 20 137/78 95 07/02/17 16:00 07/02/17 16:00 07/02/17 16:00 07/02/17 16:00 07/02/17 16:00 Intake and Output: 07/02/17 07/02/17 06:59 18:59 Intake Total 850 460 Output Total 400 Balance 450 460 - Medications Medications: Current Medications Acetaminophen (Tylenol 325mg Tab) 650 mg PO Q4H PRN PRN Reason: pain fever Albuterol/Ipratropium (Duoneb 3 Mg/0.5 Mg (3 Ml) Ud) 3 ml INH RQ6 [facility] Last Admin: 07/02/17 13:30 Dose: 3 ml Calcium/Vitamin D (Oscal-D 250 Mg-125 Units Tab) 1 tab PO DAILY [facility] Last Admin: 07/02/17 10:06 Dose: 1 tab Enoxaparin Sodium (Lovenox) 40 mg SC DAILY [facility] Last Admin: 07/02/17 10:07 Dose: 40 mg Fluticasone Propionate (Flonase) 1 spr BRUCE Q12 [facility] Last Admin: 07/02/17 10:06 Dose: Not Given Gabapentin (Neurontin) 100 mg PO BID [facility] Last Admin: 07/02/17 17:44 Dose: 100 mg Home Med (Patient's Own Medication) 1 tab PO DAILY [facility] Last Admin: 07/02/17 10:06 Dose: 1 tab Vancomycin/Sodium Chloride (Vancomycin 1 Gm/Ns 200 Ml) 1 gm in 200 mls @ 166.7 mls/hr IVPB Q24H [facility] Stop: 07/05/17 16:31 Last Admin: 07/02/17 17:43 Dose: 166.7 mls/hr Piperacillin Sod/Tazobactam (Sod 3.375 gm/ Sodium Chloride) 100 mls @ 100 mls/ hr IVPB Q8 [facility] Last Admin: 07/02/17 13:49 Dose: 100 mls/hr Levothyroxine Sodium (Synthroid) 50 mcg PO 0630 [facility] Last Admin: 07/02/17 06:40 Dose: 50 mcg Losartan Potassium (Cozaar) 25 mg PO DAILY [facility] Last Admin: 07/02/17 10:05 Dose: 25 mg Methylprednisolone (Solu-Medrol) 40 mg IVP Q12 [facility] Last Admin: 07/02/17 10:07 Dose: 40 mg Ondansetron HCl (Zofran Inj) 4 mg IVP Q6H PRN PRN Reason: Nausea/Vomiting Rosuvastatin Calcium (Crestor) 5 mg PO HS [facility] Last Admin: 07/01/17 21:39 Dose: 5 mg Fluticasone/Salmeterol (Advair Diskus 250/50) 1 puff INH RQ12 [facility] Last Admin: 07/02/17 07:30 Dose: Not Given - Labs Labs: 07/02/17 07:27 07/02/17 07:27 PT 11.3 SECONDS (9.7-12.2) 06/29/17 10:41 INR 1.0 06/29/17 10:41 APTT 25 SECONDS (21-34) 06/29/17 10:41 - Constitutional Appears: No Acute Distress - Head Exam Head Exam: NORMAL INSPECTION - Eye Exam Eye Exam: EOMI, PERRL - ENT Exam ENT Exam: Mucous Membranes Moist, Normal Oropharynx - Neck Exam Neck Exam: Normal Inspection (LESS EXPIRATORY WHEEZE.) - Cardiovascular Exam Cardiovascular Exam: REGULAR RHYTHM, +S1, +S2 - GI/Abdominal Exam GI & Abdominal Exam: Soft, Normal Bowel Sounds - Extremities Exam Extremities Exam: absent: Calf Tenderness, Pedal Edema - Neurological Exam Neurological Exam: Alert, Awake, CN II-XII Intact, Oriented x3, Reflexes Normal - Psychiatric Exam Psychiatric exam: Normal Mood - Skin Skin Exam: Normal Color, Warm Assessment and Plan (1) Sinusitis Status: Acute (2) Asthma exacerbation Status: Acute (3) Bronchitis Status: Acute (4) Dyspnea Status: Acute (5) Hypothyroidism Status: Acute (6) HTN (hypertension) Status: Chronic (7) Metastatic breast cancer Status: Acute (8) CVA (cerebral vascular accident) Status: Acute
--- NOTE | 2017-07-02 22:00 | CP.PCM.DIS ---
Provider - Provider Date of Admission: 06/29/17 12:36 Attending physician: Matteo Leal MD Time Spent in preparation of Discharge (in minutes): 34 Diagnosis - Discharge Diagnosis (1) Sinusitis Status: Acute (2) HTN (hypertension) Status: Chronic Hospital Course - Lab Results Lab Results: Micro Results 06/29/17 Unknown Blood Blood Culture - Preliminary NO GROWTH AFTER 3 DAYS 06/29/17 Unknown Blood Blood Culture - Preliminary NO GROWTH AFTER 3 DAYS 06/30/17 00:47 Sputum Gram Stain - Final 06/30/17 00:47 Sputum Sputum Culture - Final NORMAL ORAL ONELIA 06/29/17 16:57 Naris MRSA Culture (Admit) - Final MRSA NOT DETECTED 06/29/17 16:22 Urine Urine Culture - Final No Growth (<1,000 CFU/ML) Most Recent Lab Values WBC 8.5 K/uL (4.8-10.8) 07/02/17 07:27 RBC 4.40 Mil/uL (3.80-5.20) 07/02/17 07:27 Hgb 12.2 g/dL (11.0-16.0) 07/02/17 07:27 Hct 36.7 % (34.0-47.0) 07/02/17 07:27 MCV 83.2 fL (81.0-99.0) 07/02/17 07:27 MCH 27.7 pg (27.0-31.0) 07/02/17 07:27 MCHC 33.3 g/dL (33.0-37.0) 07/02/17 07:27 RDW 18.2 % (11.5-14.5) H 07/02/17 07:27 Plt Count 274 K/uL (130-400) 07/02/17 07:27 MPV 9.2 fL (7.2-11.7) 07/02/17 07:27 Neut % (Auto) 78.9 % (50.0-75.0) H 07/02/17 07:27 Lymph % (Auto) 15.2 % (20.0-40.0) L 07/02/17 07:27 [place] % (Auto) 5.9 % (0.0-10.0) 07/02/17 07:27 Eos % (Auto) 0.0 % (0.0-4.0) 07/02/17 07:27 Baso % (Auto) 0.0 % (0.0-2.0) 07/02/17 07:27 Neut # 6.7 K/uL (1.8-7.0) 07/02/17 07:27 Lymph # 1.3 K/uL (1.0-4.3) 07/02/17 07: [place] # 0.5 K/uL (0.0-0.8) 07/02/17 07: Eos # 0.0 K/uL (0.0-0.7) 07/02/17 07: Baso # 0.0 K/uL (0.0-0.2) 07/02/17 07:27 ESR 38 mm/hr (0-20) H 06/30/17 11:40 PT 11.3 SECONDS (9.7-12.2) 06/29/17 10:41 INR 1.0 06/29/17 10:41 APTT 25 SECONDS (21-34) 06/29/17 10:41 Sodium 134 mmol/L (132-148) 07/02/17 07:27 Potassium 4.4 mmol/L (3.6-5.2) 07/02/17 07:27 Chloride 106 mmol/L (98-107) 07/02/17 07:27 Carbon Dioxide 22 mmol/L (22-30) 07/02/17 07:27 Anion Gap 10 (10-20) 07/02/17 07:27 BUN 19 mg/dL (7-17) H 07/02/17 07:27 Creatinine 0.8 mg/dL (0.7-1.2) 07/02/17 07:27 Est GFR ( Amer) > 60 07/02/17 07:27 Est GFR (Non-Af Amer) > 60 07/02/17 07:27 Random Glucose 119 mg/dL (65-105) H 07/02/17 07:27 Hemoglobin A1c 6.6 % (4.2-6.5) H 06/30/17 11:40 Calcium 7.6 mg/dl (8.6-10.4) L 07/02/17 07:27 Total Bilirubin 0.4 mg/dL (0.2-1.3) 07/02/17 07:27 AST 24 U/L (14-36) 07/02/17 07:27 ALT 26 U/L (9-52) 07/02/17 07:27 Alkaline Phosphatase 54 U/L (38-126) 07/02/17 07:27 Troponin I < 0.0120 ng/mL (0.00-0.120) 06/29/17 10:41 C-React Prot High Sens 2.66 mg/L (1.00-3.00) 06/30/17 11:40 NT-Pro-B Natriuret Pep 479 pg/mL (0-900) 06/29/17 10:41 Total Protein 6.3 g/dL (6.3-8.3) 07/02/17 07: Albumin 3.3 g/dL (3.5-5.0) L 07/02/17 07: Globulin 3.0 gm/dL (2.2-3.9) 07/02/17 07: Albumin/Globulin Ratio 1.1 (1.0-2.1) 07/02/17 07:27 Triglycerides 59 mg/dL (0-149) 06/30/17 11:40 Cholesterol 185 mg/dL (0-199) 06/30/17 11:40 LDL Cholesterol Direct 91 mg/dL (0-129) 06/30/17 11:40 HDL Cholesterol 61 mg/dL (30-70) 06/30/17 11:40 TSH 3rd Generation 0.36 mIU/L (0.46-4.68) L 06/30/17 11:40 Urine Color Yellow (YELLOW) 06/29/17 11:35 Urine Clarity Clear (Clear) 06/29/17 11:35 Urine pH 6.0 (5.0-8.0) 06/29/17 11:35 Ur Specific [place] 1.019 (1.003-1.030) 06/29/17 11:35 Urine Protein 1+ mg/dL (NEGATIVE) H 06/29/17 11:35 Urine Glucose (UA) Normal mg/dL (Normal) 06/29/17 11:35 Urine Ketones Negative mg/dL (NEGATIVE) 06/29/17 11:35 Urine Blood Negative (NEGATIVE) 06/29/17 11:35 Urine Nitrate Negative (NEGATIVE) 06/29/17 11:35 Urine Bilirubin Negative (NEGATIVE) 06/29/17 11:35 Urine Urobilinogen Normal mg/dL (0.2-1.0) 06/29/17 11:35 Ur Leukocyte Esterase Trace Julio/uL (Negative) 06/29/17 11:35 Urine WBC (Auto) 3 /hpf (0-5) 06/29/17 11:35 Urine RBC (Auto) 1 /hpf (0-3) 06/29/17 11:35 Ur Squamous Epith Cells 1 /hpf (0-5) 06/29/17 11:35 Urine Bacteria Rare (<OCC) 06/29/17 11:35 Hyaline Casts 0-2 /lpf (0-2) 06/29/17 11:35 Vancomycin Trough 7.2 ug/mL (5.0-10.0) 07/02/17 16:50 Influenza Typ A,B (EIA) Negative for flu a/b (NEGATIVE) 06/29/17 10:55 Ur L.pneumophila Ag Negative (NEGATIVE) 06/29/17 20:38 Mycoplasma pneumon IgM Negative (NEGATIVE) 06/30/17 11:40 - Hospital Course Hospital Course: Pt seen and evaluated today, is for discharge today, was admitted with bronchial asthma excerberation , sinusitis was tretaed with antibiotics, prednisone Discharge Exam - Head Exam Head Exam: NORMAL INSPECTION - Eye Exam Eye Exam: Normal appearance - Respiratory Exam Respiratory Exam: Decreased Breath Sounds, Rhonchi - Cardiovascular Exam Cardiovascular Exam: REGULAR RHYTHM, +S1, +S2 - GI/Abdominal Exam GI & Abdominal Exam: Normal Bowel Sounds Discharge Plan - Follow Up Plan Condition: STABLE Disposition: HOME/ ROUTINE Instructions: Prednisone (By mouth), Cefdinir (By mouth), Fluticasone/ Vilanterol (By breathing), Asthma (GEN), Dyspnea (GEN)
[2017-07-06] MEDS ORDERED: PALBOCICLIB 75 MG PO SCH (10:00)
== END 2017-07-02 20:45 | disposition home health service (06) | DRG 202 ==
LOC: C.ER 09:52 → C.9E 12:36 → C.3T 17:46 → C.9E 17:46 → C.3T 17:50
PROVIDERS: ADMIT Internal Medicine; ATTEND Internal Medicine
DX: J45.901 Unspecified asthma with (acute) exacerbation (principal); I69.354 Hemiplegia and hemiparesis following cerebral infarction affecting left non-dominant side; C79.9 Secondary malignant neoplasm of unspecified site; E11.65 Type 2 diabetes mellitus with hyperglycemia; E83.51 Hypocalcemia; J01.90 Acute sinusitis, unspecified; C50.919 Malignant neoplasm of unspecified site of unspecified female breast; W19.XXXA Unspecified fall, initial encounter; I10 Essential (primary) hypertension; J40 Bronchitis, not specified as acute or chronic; E03.9 Hypothyroidism, unspecified; Y92.002 Bathroom of unspecified non-institutional (private) residence as the place of occurrence of the external cause; Z85.3 Personal history of malignant neoplasm of breast; Z90.49 Acquired absence of other specified parts of digestive tract; Z90.710 Acquired absence of both cervix and uterus; Z92.21 Personal history of antineoplastic chemotherapy

== ENCOUNTER 2018-08-01 09:48 | Outpatient (CLI) | payer MEDICARE, OTHER | END 2018-08-01 09:49 | disposition home or self-care (01) | LOC: C.NUCMED 09:48 | DX: C50.919 Malignant neoplasm of unspecified site of unspecified female breast (principal) ==

== ENCOUNTER 2018-09-11 12:17 | Outpatient (CLI) | payer MEDICARE, OTHER | END 2018-09-11 12:18 | disposition home or self-care (01) | LOC: C.RADIC 12:17 → C.RADH 12:18 | DX: M25.511 Pain in right shoulder (principal) ==